=== PATIENT | female | born 1945 ===

== ENCOUNTER 2024-10-08 13:34 | Outpatient (AMB) | payer MEDICARE, SELFPAY ==
--- NOTE | 2024-10-08 13:36 | MHC.OFFVIS ---
Vital Signs 10/08/24 13:37 Height 4 ft 11 in Weight 130 lb 1.164 oz BMI 26.3 BP 107/60 Blood Pressure Location Lt brachial Position Sitting Pulse 72 Intake Visit Reasons: Consult Abnormal liver imaging Fatty liver Intake Note: Sally presents in the office as a new patient for fatty liver. CC: She states that she has been having issues for a while now. She got over COVID and was left with epigastric pains and lots of gas. Inside Sales Director Required: No Allergies No Known Allergies Allergy (Verified 10/08/24 13:45) HPI Comments Details: 78 y.o F with PMH of HTN, COPD, YOVANI, HLD, Hx of SCC and BCC, remote hx of etOH use disorder, who is here for fatty liver. Reports had intermittent RUQ pain x 5-6 months which prompted an ultrasound. US showed abnormal echotexture which is a new finding for her for which she is here. Unclear if this is also accompanied with abnormal LFTs. Referral note also mentions GB wall thickening but was not able to find that on CT abd/pel report 08/2024 or US abd report 07/2024 from [facility]. Otherwise, remote hx of etOH use. No personal hx of IVDU. No hx of autoimmune disorders. No fam hx of liver disease PFSH Surgical History Hx of colonoscopy Review of Systems Const All systems reviewed & are unremarkable except as noted in HPI and below Physical Exam Vital Signs: Last Vital Signs Pulse 72 10/08/24 13:37 BP 107/60 10/08/24 13:37 BMI result Body Mass Index 26.3 No apparent distress Nonicteric Abdomen soft, nondistended Alert and oriented x3, normal gait No spider angioma on chest Assessment & Plan Assessment & Plan (1) Hepatic steatosis: Code(s): K76.0 - Fatty (change of) liver, not elsewhere classified Category: Medical Plan Reviewed with the pt that this is most likely 2/2 fatty liver disease which can commonly occur in elderly even without overt metabolic syndrome due to age related physiological changes. Will get labs to r/o other causes of chronic liver disease. Will also get elastography for non invasive testing for liver fibrosis. Follow up 6-8 weeks Orders: Orders US abdomen comp w elastography Today K76.0 - Fatty (change of) liver, not elsewhere classified Alpha 1 Anti-trypsin Today K76.0 - Fatty (change of) liver, not elsewhere classified Ceruloplasmin Today K76.0 - Fatty (change of) liver, not elsewhere classified Complete Blood Count no Diff Today K76.0 - Fatty (change of) liver, not elsewhere classified Hepatitis A IgG Today K76.0 - Fatty (change of) liver, not elsewhere classified Hepatitis B Surface Antibody Today K76.0 - Fatty (change of) liver, not elsewhere classified Hepatitis B Surface Antigen Today K76.0 - Fatty (change of) liver, not elsewhere classified HIV Ab/Ag Today K76.0 - Fatty (change of) liver, not elsewhere classified Immunoglobulin A Today K76.0 - Fatty (change of) liver, not elsewhere classified IRON PROFILE Today K76.0 - Fatty (change of) liver, not elsewhere classified Liver Kidney Microsomal Ab Today K76.0 - Fatty (change of) liver, not elsewhere classified TSH reflex Free T4 Today K76.0 - Fatty (change of) liver, not elsewhere classified Transglutaminase IgA Today K76.0 - Fatty (change of) liver, not elsewhere classified Alpha Fetoprotein Today K76.0 - Fatty (change of) liver, not elsewhere classified ANJEL Reflex Titer and Pattern Today K76.0 - Fatty (change of) liver, not elsewhere classified Comprehensive Met. Panel Today K76.0 - Fatty (change of) liver, not elsewhere classified Ferritin Today K76.0 - Fatty (change of) liver, not elsewhere classified Hepatitis B Core Antibody Today K76.0 - Fatty (change of) liver, not elsewhere classified Hepatitis C Antibody Today K76.0 - Fatty (change of) liver, not elsewhere classified Immunoglobulin G Today K76.0 - Fatty (change of) liver, not elsewhere classified Mitochondrial Antibody Today K76.0 - Fatty (change of) liver, not elsewhere classified Prothrombin Time INR Today K76.0 - Fatty (change of) liver, not elsewhere classified Smooth Muscle Antibody Today K76.0 - Fatty (change of) liver, not elsewhere classified Coding Level of Care Code Est Pt Level 4 (27329) Diagnoses Hepatic steatosis K76.0
[2024-10-08 13:37] VITALS: BP 107/60; PULSE 72; BMI 26.3
== END 2024-10-08 14:33 | disposition home or self-care (01) ==
PROVIDERS: PCP Nurse Practitioner Primary Care; Visit Provider Internal Medicine
DX: K76.0 Fatty (change of) liver, not elsewhere classified (principal)
CPT/HCPCS: 99214

== ENCOUNTER → 2024-10-08 13:34 | Outpatient (BNVA) | payer MEDICARE, SELFPAY | PROVIDERS: PCP Nurse Practitioner Primary Care; Visit Provider Internal Medicine | DX: K76.0 Fatty (change of) liver, not elsewhere classified (principal) | CPT/HCPCS: 99212 ==